=== PATIENT | female | born 1995 | race Caucasian/White ===

== ENCOUNTER 2019-03-20 05:19 | Emergency (ER) | payer BC, OTHER ==
--- NOTE | 2019-03-20 06:59 | CT ---
INDICATION: Back pain after fall from a 2nd story balcony. COMPARISON: COMPARISON DATE TECHNIQUE: CT examination of the lumbar spine is performed with spiral technique without contrast. 3 mm thick axial, sagittal and coronal reconstructions were made. Please note that all CT scans at this facility use dose modulation, iterative reconstruction, and/or weight-based dosing when appropriate to reduce radiation dose to as low as reasonably achievable. FINDINGS: : There is minimal anterior wedging of the L1 and L2 vertebral bodies with minimal sclerosis and irregularity of the anterior superior cortex. These may be acute mild compression fractures. The rest of the lumbar vertebral bodies are normal in height with no similar abnormal anterior contour. Intervertebral discs are normal in height. No foraminal stenosis is evident. The visualized abdominal viscera is normal in appearance. IMPRESSION: Possible mild anterior superior compression fractures of L1 and L2. These are of indeterminate age. Please note that all CT scans at this facility use dose modulation, iterative reconstruction, and/or weight-based dosing when appropriate to reduce radiation dose to as low as reasonably achievable. Dictated by Bj Jain MD @ Mar 20 2019 6:53AM Signed by Dr. Bj Jain @ Mar 20 2019 6:56AM
--- NOTE | 2019-03-20 06:59 | CR ---
INDICATION: Pain after fall from 2nd story balcony. COMPARISON: None available. TECHNIQUE: AP and lateral views of the tibia and fibula were obtained bilaterally. FINDINGS: There is no sign of fracture, dislocation, or joint effusion. The soft tissues are normal in appearance without sign of radio-opaque foreign body. No significant degenerative disease is seen in the visualized portions of the knee and ankle. IMPRESSION: Normal two-view bilateral tibia and fibula examination. Dictated by Bj Jain MD @ Mar 20 2019 6:56AM Signed by Dr. Bj Jain @ Mar 20 2019 6:58AM
--- NOTE | 2019-03-20 07:01 | CR ---
HISTORY: Pain after fall from a 2nd story balcony. COMPARISON: None available. FINDINGS: AP and lateral views of the right ankle were obtained. There is no sign of fracture or dislocation. The ankle mortise is intact. The talar dome is intact. There is no sign of a joint effusion. The soft tissues are normal in appearance with no sign of foreign body. No degenerative changes are seen IMPRESSION: Normal right ankle. Dictated by Bj Jain MD @ Mar 20 2019 6:58AM Signed by Dr. Bj Jain @ Mar 20 2019 6:59AM
--- NOTE | 2019-03-20 07:01 | CR ---
INDICATION: Pain after fall from a 2nd story balcony. COMPARISON: None available. FINDINGS: AP and lateral views of the left ankle were obtained. There is no sign of fracture or dislocation. The ankle mortise is intact. The talar dome is intact. There is no sign of a joint effusion. The soft tissues are normal in appearance with no sign of foreign body. No degenerative changes are seen. IMPRESSION: Normal left ankle. Dictated by Bj Jain MD @ Mar 20 2019 6:58AM Signed by Dr. Bj Jain @ Mar 20 2019 6:58AM
--- NOTE | 2019-03-20 07:03 | CR ---
INDICATION: Pain after fall from a 2nd story balcony. COMPARISON: None available. FINDINGS: The feet were examined bilaterally with AP, lateral, and oblique views. There is no sign of fracture or dislocation. The soft tissues are normal in appearance without sign of radio-opaque foreign body. 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 No significant degenerative disease is seen. IMPRESSION: No sign of acute osseous injury to the feet. Benign bubbly bone lesion in the medial aspect of the shaft of the right 3rd proximal phalanx. Dictated by Bj Jain MD @ Mar 20 2019 6:59AM Signed by Dr. Bj Jain @ Mar 20 2019 7:02AM
--- NOTE | 2019-03-20 07:46 | EDM.PDOC ---
ED HPI GENERAL MEDICAL PROBLEM - General Chief Complaint: Trauma Stated Complaint: FALL Time Seen by Provider: 03/20/19 05:45 Source of Information: Reports: Patient History Limitations: Reports: No Limitations - History of Present Illness INITIAL COMMENTS - FREE TEXT/NARRATIVE: 23-year-old female presents to the emergency room after jumping off a roof. States now she cannot walk and has back pain Onset: Today Duration: Hour(s):, Getting Worse Location: Reports: Back, Lower Extremity, Left, Lower Extremity, Right Quality: Reports: Ache Severity: Moderate Improves with: Reports: None Worsens with: Reports: None Associated Symptoms: Reports: No Other Symptoms Lower Back Pain Score (Numeric/FACES): 4 - Related Data Allergies Allergy/AdvReac Type Severity Reaction Status Date / Time No Known Allergies Allergy Verified 03/20/19 05:34 Home Meds: Home Meds . [No Known Home Meds] 03/20/19 [History] Past Medical History HEENT History: Reports: None Cardiovascular History: Reports: None Respiratory History: Reports: None Gastrointestinal History: Reports: None Genitourinary History: Reports: None [employer] History: Reports: None Musculoskeletal History: Reports: None Neurological History: Reports: None Psychiatric History: Reports: Suicide Attempt, Suicidal Ideation Endocrine/Metabolic History: Reports: None Hematologic History: Reports: None Immunologic History: Reports: None Oncologic (Cancer) History: Reports: None Dermatologic History: Reports: None - Infectious Disease History Infectious Disease History: Reports: None - Past Surgical History Head Surgeries/Procedures: Reports: None Social & Family History - Tobacco Use Smoking Status *Q: Current Some Day Smoker Years of Tobacco use: 1 Packs/Tins Daily: 0.1 - Caffeine Use Caffeine Use: Reports: None - Alcohol Use Days Per Week of Alcohol Use: 7 Number of Drinks Per Day: 1 Total Drinks Per Week: 7 - Recreational Drug Use Recreational Drug Use: Yes Drug Use in Last 12 Months: Yes Recreational Drug Type: Reports: Marijuana/Hashish, Methamphetamine Recreational Drug Use Frequency: Not Used In Over 2 Months Review of Systems - Review of Systems Review Of Systems: See Below Constitutional: Reports: No Symptoms Eyes: Reports: No Symptoms Ears: Reports: No Symptoms Nose: Reports: No Symptoms Mouth/Throat: Reports: No Symptoms Respiratory: Reports: No Symptoms Cardiovascular: Reports: No Symptoms GI/Abdominal: Reports: No Symptoms Genitourinary: Reports: No Symptoms Musculoskeletal: Reports: Back Pain, Foot Pain Skin: Reports: No Symptoms Neurological: Reports: No Symptoms Psychiatric: Reports: No Symptoms ED EXAM, GENERAL - Physical Exam Exam: See Below Free Text/Narrative:: On exam patient has Pain in the lower back. Also has pain in the heels. Meaning of the exam is normal HEENT is normal Lungs chest are normal, abdomen is normal and Exam Limited By: No Limitations General Appearance: Alert, WD/WN, No Apparent Distress, Mild Distress Eye Exam: Bilateral Eye: PERRL Ears: Normal External Exam, Normal Canal, Hearing Grossly Normal Nose: Normal Inspection, Normal Mucosa Throat/Mouth: Normal Inspection, Normal Lips, Normal Teeth, Normal Oropharynx, Normal Voice Head: Atraumatic, Normocephalic Neck: Normal Inspection, Supple, Non-Tender Respiratory/Chest: No Respiratory Distress, Lungs Clear Cardiovascular: Normal Peripheral Pulses, Regular Rate, Rhythm, No Edema Peripheral Pulses: 0: Femoral (L) GI/Abdominal: Normal Bowel Sounds, Soft, Non-Tender, No Organomegaly (Female) Exam: Deferred Rectal (Female) Exam: Deferred Back Exam: Normal Inspection, Paraspinal Tenderness, Vertebral Tenderness ( Lumbar vertebrae.) Extremities: Normal Inspection (Left legs. Patient has pain in the ankles and feet.Ankles and feet have good neurovascular return without swelling.) Neurological: Alert, Oriented, CN II-XII Intact, Normal Cognition Psychiatric: Normal Affect Skin Exam: Warm, Dry, Intact, Normal Color Lymphatic: No Adenopathy Course - Vital Signs Last Recorded V/S: Last Vital Signs Temp 99.1 F 03/20/19 05:27 Pulse 74 03/20/19 07:34 Resp 16 03/20/19 07:34 BP 99/54 L 03/20/19 07:34 Pulse Ox 97 03/20/19 07:34 - Orders/Labs/Meds Labs: Laboratory Tests 03/20/19 Range/Units 05:43 Urine HCG, Qual NEGATIVE (NEGATIVE) Departure - Departure Time of Disposition: 07:47 Disposition: DC/Tfer to Acute Hospital 02 Condition: Fair Clinical Impression: Back fracture - Discharge Information Referrals: PCP,None [Primary Care Provider] - Sepsis Event Note - Evaluation Sepsis Screening Result: No Definite Risk - Focused Exam Vital Signs: Vital Signs Temp Pulse Resp BP Pulse Ox 03/20/19 07:34 74 16 99/54 L 97 03/20/19 05:27 99.1 F 106 H 18 121/56 L 98 Date Exam was Performed: 03/20/19 Time Exam was Performed: 07:41
[2019-03-20] MEDS ORDERED: HYDROmorphone 1 MG/ML Syringe IVPUSH ONE (08:53)
== END 2019-03-20 09:20 ==
LOC: MW.ED 05:19
DX: S32.018A Other fracture of first lumbar vertebra, initial encounter for closed fracture (principal); S32.028A Other fracture of second lumbar vertebra, initial encounter for closed fracture; F17.210 Nicotine dependence, cigarettes, uncomplicated; W13.2XXA Fall from, out of or through roof, initial encounter; Y93.39 Activity, other involving climbing, rappelling and jumping off; Y92.019 Unspecified place in single-family (private) house as the place of occurrence of the external cause
CPT/HCPCS: 72131; 73590; 73600; 73620; 81025; 96374; 99285; J1170; 99284

== ENCOUNTER 2019-06-25 02:24 | Emergency (ER) | payer BC ==
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
[2019-06-25 03:38] LABS: ACETAMINOPHEN <2.0 ug/mL; BLOOD UREA NITROGEN,BUN 12 mg/dL (7.0-18.0); CARBON DIOXIDE,CO2 29.2 mmol/L (21.0-32.0); CHLORIDE,CL 101 mmol/L (98-107); GLUCOSE RANDOM 103 mg/dL (74-106); SODIUM,NA 138 mmol/L (136-145)
== END 2019-06-25 05:15 ==
LOC: MW.ED 02:24
DX: F32.9 Major depressive disorder, single episode, unspecified (principal)
CPT/HCPCS: 36415; 80053; 80305-QW; 80307; 81001; 81025; 85025; 87086; 93005; 99285; 99285-25